=== PATIENT | male | born 1965 | race African-American/Black ===

== ENCOUNTER → 2018-10-07 | Outpatient (CLI) | payer MEDICARE, OTHER ==
--- NOTE | 2018-10-07 14:47 | CONS ---
Assessment/Plan Assessment/Plan Hospital Course (Demo Recall) 53-year-old male with 1 year of mild 3/10 left hip pain that is both in the groin and posterior aspect. 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 It is also possible he may have intra-articular pathology as the MRI was not an MR arthrogram and labral tear may have been missed. He does not have mechanical symptoms for labral tear. At this stage the patient is not interested in any surgical intervention or injection or oral medication. He is agreeable to physical therapy. Physical therapy for lumbar spine and stability and left hip pain. If the patient fails physical therapy oral anti-inflammatories will be offered to the patient as well as possible intra-articular hip injection for diagnostic and therapeutic purposes. Follow-up 3 months Consultation Date/Type/Reason Admit Date/Time Date of Consultation: Oct 07, 2018 Reason for Consultation Left hip pain Date/Time of Note DATE: 10/07/18 TIME: 14:45 Hx of Present Illness This is a 53-year-old male who presents with a history of left hip pain. Patient states the pain is in the groin and posterior aspect of the hip. The pain is constant but worse with weightbearing and activity. It does not radiate. It is described as a dull ache. The pain is rated as a 3/10 with activity and 1/10 at rest. Walking tolerance is 12 blocks. No external support. The patient does not admit to a limp. Navigates stairs without use of the banister. Has no difficulty with shoes and socks. No history of childhood or adolescent hip disease. No risk factors for avascular necrosis. There are symptoms to suggest referred pain from the back with radicular symptoms. He has history of lumbar spine instability. Was told in the past that he may need a fusion. Treatment to date has included holistic medicine, chiropractor, activity modification. The patient states that treatment to date has not provided adequate relief of symptoms, prompting consultation regarding nonoperative treatment for left hip pain. Duration: One year Injury: No Walking tolerance: 12 block Limp: No Support: No Stairs: Uses normal Physical Therapy: No formal physical therapy Injections: No NSAID's: No Prior surgery: No Back pain: Yes Knee pain: No Risk of AVN : No Patient denies fever, chills, shortness of breath, chest pain, nausea/vomiting, constipation, diarrhea, numbness, and tingling. Past Medical History Possible osteoporosis Past Surgical History Right knee surgery December 2015 Family History Significant Family History: no pertinent family hx Social History Alcohol Use: none Smoking Status: Never smoker Drug Use: none Exam/Review of Systems Exam Vitals Weight: 190 Height: 6 foot 2 inches Temperature: 98.4 Heart Rate: 72 Blood Pressure: 104/64 Respiratory Rate: 12 Exam General: Awake, alert, in no acute distress, pleasant and cooperative Heart: regular rhythm Lungs: breathing comfortably, no tachypnea or dyspnea Musculoskeletal: Well developed male in no apparent distress. Gait demonstrates a slight antalgic components and no short leg component. Standing, the pelvis is level and supine there is no true leg length discrepancy. Mild tenderness over trochanteric bursa or IT band. ----- Range of motion: Flexion: 120 Extension: 0 Internal rotation: 30 External rotation: 60 Abduction: 60 Adduction: 10 ----- Sitting there is no pelvic obliquity. Pain at the extremes of motion of the affected hip. Skin was intact throughout both lower extremities. Sensation intact to light touch in a sural, saphenous, deep peroneal, superficial peroneal, medial and lateral plantar nerve distribution. Neurovascular exam showed 5/5 strength in the abductors, quads, EHL/tibialis anterior/gastroc. Normal and symmetrical pulses were palpated in both the dorsalis pedis and posterior tibial arteries. There is no sign of venous stasis. Imaging Imaging The patient received a full set of films and personally reviewed by myself today in clinic including an AP pelvis and an AP and lateral of the affected hip. The hip is reduced. There is no loss of joint space. There is an os lateral to the acetabulum. There is no osteophyte formation. There is no subchondral sclerosis. There are no subchondral cysts. Mild GÓMEZ. There is no significant deformity of the the proximal femur, femoral neck, or acetabulum. The pelvis is in continuity. Bone quality radiographically: Good MRI report of the left hip was available for review. No imaging was available for review. It was an MRI without Intra-articular contrast bilateral prominent os acetabuli. Borderline Cam type GÓMEZ. No bursitis or tendinitis around the hip. No degenerative changes of the articular cartilage. No labral tear seen. ABDULAZIZ WHITNEY MD Oct 07, 2018 14:47
--- NOTE | 2018-10-08 06:51 | RADRPT ---
PROCEDURE: XR Hip. CLINICAL INDICATION: PAIN TECHNIQUE: Weightbearing AP view of the pelvis, AP and frog lateral views of the left hip were perfo rmed. COMPARISON: None. FINDINGS: Left hip: Mineralization is intact. No displaced fracture. Os acetabulare and marginal osteophyte fo rmation without significant cartilage space narrowing. Pelvis: Mineralization is intact. No displaced fracture. Imaged sacrum is obscured by overlying onofre l gas and stool. Os acetabulare and marginal osteophyte formation in the right hip without significan t cartilage space narrowing. IMPRESSION: Bilateral os acetabulare and marginal osteophyte formation without significant cartilage space narrow ing. RPTAT: BBDD Physician Lux Date Time Electronically viewed and signed by Physician Lux on 10/08/2018 06:50 RG/
== END | disposition home or self-care (01) ==
LOC: HKI 14:31
PROVIDERS: ATTEND Orthopaedic Surgery Adult Reconstructive Orthopaedic Surgery
DX: M25.552 Pain in left hip (principal)
CPT/HCPCS: 73502; G0463